=== PATIENT | male | born 1940 | race Caucasian/White ===

== ENCOUNTER 2017-04-05 17:30 | Emergency (ER) | payer OTHER, MEDICAID ==
[~2017-04-05] VITALS: Ht 185.4 cm; Wt 104.8 kg
[2017-04-05 17:48] VITALS: BP_SYST 130
[2017-04-05] MEDS: LIDOCAINE 1% 10 MG/ML, 20 ML MDV IJ ONE (19:57)
[2017-04-05] MEDS: BACITRACIN 1 GM OINT TP ONE (19:57)
[2017-04-05 20:10] VITALS: BP_SYST 121
== END 2017-04-05 20:10 | disposition home or self-care (01) ==
LOC: SED 17:30
DX: S91.202A Unspecified open wound of left great toe with damage to nail, initial encounter (principal); L08.9 Local infection of the skin and subcutaneous tissue, unspecified; I10 Essential (primary) hypertension; Z90.49 Acquired absence of other specified parts of digestive tract; W22.8XXA Striking against or struck by other objects, initial encounter; Y93.89 Activity, other specified; Y92.89 Other specified places as the place of occurrence of the external cause; Y99.8 Other external cause status
CPT/HCPCS: 11730; 73660; 99284; J2001

== ENCOUNTER 2017-04-08 19:54 | Emergency (ER) | payer OTHER, MEDICAID ==
[~2017-04-08] VITALS: Ht 185.4 cm; Wt 104.3 kg
[2017-04-08 19:55] VITALS: BP_SYST 145
--- NOTE | 2017-04-08 22:05 | NUR ---
PT STATED 'I AM LEAVING, I DON'T NEED TO SEE THE DOCTOR"
--- NOTE | 2017-04-08 22:05 | NUR ---
Patient left without being seen.
== END 2017-04-08 22:05 | disposition left against medical advice (07) ==
LOC: SED 19:54
DX: M79.672 Pain in left foot (principal); Z53.21 Procedure and treatment not carried out due to patient leaving prior to being seen by health care provider

== ENCOUNTER 2017-04-09 14:39 | Emergency (ER) | payer OTHER, MEDICAID ==
[2017-04-09 15:37] VITALS: BP_SYST 133
--- NOTE | 2017-04-09 15:45 | NUR ---
Patient stating he does not want to stay and wait for MD, encouraged to wait to see the MD, continues to refuse. ambulated with steady gait outside with family
== END 2017-04-09 16:15 | disposition left against medical advice (07) ==
LOC: SED 14:39
DX: Z48.01 Encounter for change or removal of surgical wound dressing (principal); Z53.21 Procedure and treatment not carried out due to patient leaving prior to being seen by health care provider